=== PATIENT | female | born 1950 | race Two or more races ===

== ENCOUNTER 2024-12-09 07:10 | Inpatient (IN) | payer OTHER ==
[~2024-12-09] VITALS: Ht 162.6 cm; Wt 68.0 kg
[2024-12-09 07:48] VITALS: BP 134/74; O2SAT 98
--- NOTE | 2024-12-09 07:57 | NUR ---
SE RECIBE PACIENTE ALERTA Y ORIENTADA X3. LA MISMA REFIERE DOLOR EN EL FLANCO DERECHO QUE IRRADIA HACIA LA ESPALDA. SE MIDEN S/V Y SE UBICA.
[2024-12-09] MEDS ORDERED: 0.9 % SODIUM CHLORIDE 1,000 ML IV SCH (08:15)
[2024-12-09 09:29] LABS: BASO % 0.7 % (0.1-1.2); EOS % 1.8 % (0.7-7.0); HEMATOCRIT 37.3 % (34.1-44.9); HEMOGLOBIN 12.4 g/dL (11.2-15.7); LYMPH # 1.82 (1.18-3.74); LYMPH % 32.7 % (19.3-53.1); MEAN CORPUSCULAR HEMOGLOBIN 28.9 pg (25.6-32.2); MONO # 0.37 (0.24-0.82); MONO % 6.6 % (4.7-12.5); NEUT # 3.22 (1.56-6.13); NEUT % 57.8 % (34.0-71.1); PLATELET COUNT 359 K/uL (163-369); RED BLOOD COUNT 4.29 M/uL (3.93-5.22); RED CELL DISTRIBUTION WIDTH 13.7 % (11.6-14.4)
[2024-12-09 10:19] LABS: PARTIAL THROMBOPLASTIN TIME 27.2 SECONDS (22.0-34.0); PROTHROMBIN TIME 10.9 SECONDS (9.0-11.5)
[2024-12-09 10:36] LABS: ALBUMIN 3.6 gm/dL (3.4-5.0); BILIRUBIN TOTAL 0.34 mg/dL (0.3-1.2); CALCIUM 8.9 mg/dL (8.5-10.1); CREATININE SERUM 0.81 mg/dL (0.55-1.02); GFR 68.75; GLOBULINA 4.7 G/DL (2.4-3.5); POTASSIUM 4.07 mEq/L (3.5-5.1); TOTAL PROTEIN 8.3 gm/dL (6.4-8.2)
[2024-12-09 11:11] LABS: URINE APPEARANCE Clear; URINE BILIRRUBIN Negative (NEGATIVE); URINE BLOOD Trace; URINE COLOR Yellow; URINE GLUCOSE Negative (NEGATIVE); URINE KETONE Negative (NEGATIVE); URINE LEUKOCYTE Trace; URINE NITRATE Negative; URINE PROTEIN Negative (NEGATIVE); URINE UROBILINOGEN 0.2 E.U./dl
[2024-12-09 11:12] LABS: URINE BACTERIA 549.4 uL (0.0-1933); URINE EPITHELIAL CELLS 34.3 uL (0.0-38.8); URINE RBC 4.5 uL (0.0-20.8)
[2024-12-09 11:14] LABS: URINE CAST 0.29 uL (0.0-1.40)
[2024-12-09] MEDS ORDERED: CHLORHEXIDINE GLUCONATE 120 ML BOTTLE TOP ONE (15:15)
[2024-12-09] MEDS ORDERED: KETOROLAC TROMETHAMINE 30 MG VIAL ONE (18:23)
== END 2024-12-10 12:57 | disposition home or self-care (01) | DRG 419 ==
LOC: ER 07:10 → SURH 09:07 → SEC-K 09:07 → SURH 09:59
PROVIDERS: Emergency Medicine; ADMIT Surgery; ATTEND Surgery
PROC: 0FT44ZZ Resection of Gallbladder, Percutaneous Endoscopic Approach (ICD-10-PCS; principal; 2024-12-09)
PROC: BF13YZZ Fluoroscopy of Gallbladder and Bile Ducts using Other Contrast (ICD-10-PCS; 2024-12-09)
DX: K80.10 Calculus of gallbladder with chronic cholecystitis without obstruction (principal)